=== PATIENT | female | born 1935 | race African-American/Black ===

== ENCOUNTER 2021-02-18 01:26 | Inpatient (IN) | payer OTHER ==
[2021-02-18] VITALS (9 sets, daily range): BP systolic 94–126; BP diastolic 61–73
[~2021-02-18] VITALS: Ht 154.9 cm; Wt 43.5 kg
[2021-02-18] MEDS ORDERED: MethylPREDNISolone SOD SUCC 125 MG/2 ML VIAL ONE (01:42)
[2021-02-18] MEDS ORDERED: IPRATROPIUM BROMIDE 0.5 MG/2.5 ML NEB SOLUTION NEB ONE (01:45)
[2021-02-18] MEDS ORDERED: ALBUTEROL SULFATE 5 MG/ML 20 ML NEB SOLN [BULK] NEB ONE (01:45)
[2021-02-18] MEDS ORDERED: MethylPREDNISolone SOD SUCC 125 MG/2 ML VIAL IVP ONE (01:45)
[2021-02-18] MEDS ORDERED: MAGNESIUM SULFATE 2 GM/WATER 50 ML IV ONE (01:45)
[2021-02-18] MEDS ORDERED: 0.9% SODIUM CHLORIDE 10 ML SYRINGE IVP PRN (01:45)
[2021-02-18 01:56] LABS: ABG A-A DIFF O2 339.1 mmHg (10-20.0); ABG BASE EXCESS -9.4 mmol/L (-2.0-3.0); ABG CARBOXYHEMOGLOBIN 0.3 % (0.0-1.5); ABG HCO3 17.6 mmol/L (22.0-26.0); ABG METHEMOGLOBIN 0.3 % (0.0-1.5); ABG OXYGEN CONTENT 19.2 mL/dL (15.0-23.0); ABG OXYGEN SATURATION 99.4 % (95.0-98.0); ABG OXYHEMOGLOBIN 98.8 % (94.0-100.0); ABG PCO2 38 mmHg (35-45); ABG PH 7.277 (7.35-7.450); ABG TOTAL HEMOGLOBIN 13.2 G/dL (12.0-18.0); O2 DEVICE,BLOOD GAS BIPAP (ROOM AIR); PO2, ARTERIAL BG 335.8 mmHg (71.0-79.0); SITE, BLOOD GAS RT RADIAL; SOURCE, BLOOD GAS ARTERIAL; TEMPERATURE, FAHRENHEIT, BG 98.6 FAHREN (96.0-98.6)
[2021-02-18] MEDS ORDERED: ASPI-1450 PO (01:56)
[2021-02-18] MEDS ORDERED: ALEN10TA33 PO (01:56)
[2021-02-18] MEDS ORDERED: AMLO-258 PO (01:56)
[2021-02-18] MEDS ORDERED: ATOR40TA28 PO (01:56)
[2021-02-18] MEDS ORDERED: MELO-107 PO (01:56)
[2021-02-18] MEDS ORDERED: 0.9% SODIUM CHLORIDE 15 ML NEB SOLUTION NEB ONE (01:59)
[2021-02-18 02:05] LABS: COVID AG,FIA SOURCE NASOPHARYNGEAL
[2021-02-18 02:07] LABS: BASOPHILS % (AUTO) 0.5 % (0.0-2.0); EOSINOPHILS % (AUTO) 0.5 % (1.0-6.0); HEMATOCRIT 40.1 % (36-46); HEMOGLOBIN 12.7 g/dL (12.0-16.0); LYMPHOCYTES # (AUTO) 5.2 K/uL (1.0-4.8); LYMPHOCYTES % (AUTO) 51.6 % (22.0-44.0); MEAN CORPUSCULAR HEMOGLOBIN 30.3 pg (26.0-34.0); MEAN CORPUSCULAR HGB CONC 31.6 G/dL (31.0-37.0); MEAN CORPUSCULAR VOLUME 96 fL (80-100); MONOCYTES # (AUTO) 0.5 K/uL (0.1-1.0); MONOCYTES % (AUTO) 4.6 % (2.0-9.0); NEUTROPHILS # (AUTO) 4.3 K/uL (1.8-7.7); NEUTROPHILS % (AUTO) 42.8 % (40.0-70.0); PLATELET COUNT (AUTO) 254 K/uL (150-450); RED BLOOD CELL COUNT(AUTO) 4.19 MIL/uL (4.00-5.20); RED CELL DISTRIBUTION WIDTH 14.6 % (11.5-14.5)
[2021-02-18] MEDS ORDERED: ONDANSETRON HCL 4 MG/2 ML VIAL IVP PRN ×2 (02:15→08:15)
[2021-02-18] MEDS ORDERED: ACETAMINOPHEN 325 MG TABLET PO PRN (02:15)
[2021-02-18] MEDS ORDERED: VANCOMYCIN HCL 1 GM/D5% WATER 200 ML IV ONE (02:15)
[2021-02-18] MEDS ORDERED: PIPERACILLIN/TAZO 3.375 GM/D5W 50 ML IV ONE (02:15)
[2021-02-18] MEDS ORDERED: SODIUM CHLORIDE 0.9% 500 ML IV ONE ×2 (02:15→12:45)
[2021-02-18 02:17] LABS: POTASSIUM 3.5 mmol/L (3.5-5.1)
[2021-02-18 02:23] LABS: ANION GAP 17 mmol/L (8-16); CALCIUM, TOTAL 8.5 mg/dL (8.8-10.5); CARBON DIOXIDE 23 mmol/L (22-29); CHLORIDE 109 mmol/L (98-107); CREATININE 1.12 mg/dL (0.60-1.30); GLOMERULAR FILTR. RATE CALC 56 mL/min (>60); GLUCOSE,RANDOM 184 mg/dL (70-110); SODIUM SERUM 149 mmol/L (136-145); UREA NITROGEN, BLOOD 16 mg/dL (7-18)
[2021-02-18 02:29] LABS: ALANINE AMINOTRANSFERASE 188 U/L (12-78); ALBUMIN 3.5 g/dL (3.4-5.0); ALKALINE PHOSPHATASE 169 U/L (46-116); ASPARTATE AMINOTRANSFERASE 214 U/L (15-37); BILIRUBIN,TOTAL 0.5 mg/dL (0.1-1.0); TOTAL PROTEIN, SERUM 6.6 g/dL (6.4-8.2)
[2021-02-18 02:34] LABS: D-DIMER 1.94 mg/L FEU (0.00-0.50); INR 1.1 (0.9-1.1); PROTHROMBIN TIME 11.2 SEC (9.4-11.6)
[2021-02-18 02:39] LABS: B-TYPE NATRIURETIC PEPTIDE 1200 pg/mL (0-100)
[2021-02-18 02:43] LABS: LACTIC ACID 6.7 mmol/L (0.4-2.0)
[2021-02-18] MEDS ORDERED: NITROGLYCERIN 50 MG/D5% WATER 250 ML IV PRN (03:00)
[2021-02-18] MEDS ORDERED: IOHEXOL 350 MG/ML 100 ML VIAL ONE (03:10)
[2021-02-18] MEDS ORDERED: SODIUM CHLORIDE 0.9% 100 ML ONE (03:11)
[2021-02-18 03:44] LABS: APPEARANCE,URINE CLOUDY (CLEAR); BILIRUBIN,URINE NEGATIVE (NEGATIVE); GLUCOSE, URINE (UA) 100 mg/dL (NEGATIVE); KETONES,URINE NEGATIVE (NEGATIVE); LEUKOCYTE ESTERASE ,URINE NEGATIVE (NEGATIVE); NITRATE,URINE NEGATIVE (NEGATIVE); OCCULT BLOOD,URINE SMALL (NEGATIVE); PH,URINE 7.5 (5.0-8.0); PROTEIN,URINE SEE CONFIRM (NEGATIVE)
[2021-02-18] MEDS ORDERED: HEPARIN SODIUM,PORCINE 5,000 UNITS/ML VIAL IVP PRN ×5 (03:45→21:45)
[2021-02-18] MEDS ORDERED: HEPARIN SODIUM,PORCINE 5,000 UNITS/ML VIAL IVP ONE ×2 (03:45→21:45)
[2021-02-18 03:49] LABS: SULFOSALICYLIC ACID,URINE 2+ (Negative)
[2021-02-18 03:50] LABS: BACTERIA,URINE Rare /HPF (None Seen); SQUAMOUS EPITHELIAL CELL,UR Rare /LPF (None Seen); WBC,URINE 0-2 /HPF (0-5)
[2021-02-18] MEDS ORDERED: FUROSEMIDE 40 MG/4 ML VIAL IVP ONE (04:00)
[2021-02-18] MEDS: HEPARIN SODIUM 25000 UNITS/D5W 250 ML IV PRN ×3 (05:03→22:39)
[2021-02-18 05:50] LABS: ABG A-A DIFF O2 93.7 mmHg (10-20.0); ABG BASE EXCESS -2.9 mmol/L (-2.0-3.0); ABG CARBOXYHEMOGLOBIN 0.3 % (0.0-1.5); ABG HCO3 22.9 mmol/L (22.0-26.0); ABG METHEMOGLOBIN 0.2 % (0.0-1.5); ABG OXYGEN CONTENT 18.2 mL/dL (15.0-23.0); ABG OXYGEN SATURATION 94.8 % (95.0-98.0); ABG OXYHEMOGLOBIN 94.3 % (94.0-100.0); ABG PCO2 31 mmHg (35-45); ABG PH 7.453 (7.35-7.450); ABG TOTAL HEMOGLOBIN 13.7 G/dL (12.0-18.0); PO2, ARTERIAL BG 69.6 mmHg (71.0-79.0); SITE, BLOOD GAS LFT RADIAL; SOURCE, BLOOD GAS ARTERIAL; TEMPERATURE, FAHRENHEIT, BG 98.6 FAHREN (96.0-98.6)
[2021-02-18 05:51] LABS: O2 DEVICE,BLOOD GAS CANNULA (ROOM AIR)
[2021-02-18] MEDS ORDERED: BISACODYL 10 MG RECTAL RECTAL SUPPOSITORY PR PRN (08:15)
[2021-02-18] MEDS ORDERED: ZOLPIDEM TARTRATE 5 MG TABLET PO PRN (08:15)
[2021-02-18] MEDS ORDERED: MORPHINE SULFATE 2 MG/ML SYRINGE IVP PRN (08:15)
[2021-02-18] MEDS ORDERED: HYDROCODONE/ACETAMINOPHEN 5-325 MG TABLET PO PRN (08:15)
[2021-02-18] MEDS ORDERED: MAGNESIUM HYDROXIDE SUSPENSION 30 ML UDCUP PO PRN (08:15)
[2021-02-18] MEDS ORDERED: SODIUM CHLORIDE 0.9% 250 ML IV ONE (08:33)
[2021-02-18] MEDS ORDERED: HEPARIN SODIUM 25000 UNITS/D5W 250 ML IV PRN (08:45)
[2021-02-18] MEDS: PANTOPRAZOLE SODIUM 40 MG DR TABLET PO SCH (09:50)
[2021-02-18] MEDS: DOCUSATE SODIUM 100 MG CAPSULE PO SCH ×2 (09:50→21:21)
[2021-02-18] MEDS: AmLODIPine BESYLATE 10 MG TABLET PO SCH (09:50)
[2021-02-18] MEDS: ASPIRIN 81 MG CHEWABLE TABLET PO SCH (09:51)
[2021-02-18 09:54] LABS: BASOPHILS % (AUTO) 0.1 % (0.0-2.0); EOSINOPHILS % (AUTO) 0.1 % (1.0-6.0); HEMATOCRIT 38.2 % (36-46); HEMOGLOBIN 12.5 g/dL (12.0-16.0); LYMPHOCYTES # (AUTO) 0.6 K/uL (1.0-4.8); LYMPHOCYTES % (AUTO) 4.4 % (22.0-44.0); MEAN CORPUSCULAR HGB CONC 32.7 G/dL (31.0-37.0); MEAN CORPUSCULAR VOLUME 92 fL (80-100); MONOCYTES # (AUTO) 0.1 K/uL (0.1-1.0); MONOCYTES % (AUTO) 1.1 % (2.0-9.0); NEUTROPHILS # (AUTO) 12.2 K/uL (1.8-7.7); PLATELET COUNT (AUTO) 281 K/uL (150-450); RED BLOOD CELL COUNT(AUTO) 4.17 MIL/uL (4.00-5.20); RED CELL DISTRIBUTION WIDTH 14.5 % (11.5-14.5)
[2021-02-18 09:56] LABS: NEUTROPHILS % (AUTO) 94.3 % (40.0-70.0)
[2021-02-18] MEDS: FUROSEMIDE 20 MG/2 ML VIAL IVP SCH ×2 (09:57→21:21)
[2021-02-18] MEDS ORDERED: IOHEXOL 300 MG/ML 150 ML VIAL ONE (10:58)
[2021-02-18] MEDS ORDERED: HEPARIN SODIUM 1000 UNITS/NS 1,000 ML ONE (10:58)
[2021-02-18] MEDS ORDERED: LIDOCAINE/PF 1% 30 ML VIAL ONE (10:58)
[2021-02-18] MEDS ORDERED: SODIUM BICARBONATE 50 MEQ/50 ML VIAL ONE (10:58)
[2021-02-18] MEDS ORDERED: IOHEXOL 300 MG/ML 100 ML VIAL ONE (11:02)
[2021-02-18] MEDS ORDERED: IOHEXOL 300 MG/ML 50 ML VIAL ONE (11:02)
[2021-02-18] MEDS ORDERED: IPRATROPIUM BROMIDE 0.5 MG/2.5 ML NEB SOLUTION NEB PRN (11:30)
[2021-02-18] MEDS ORDERED: MIDAZOLAM HCL 2 MG/2 ML VIAL ONE (12:10)
[2021-02-18] MEDS ORDERED: FentaNYL CITRATE PF 100 MCG/2 ML VIAL ONE (12:10)
[2021-02-18] MEDS ORDERED: IOHEXOL 300 MG/ML 50 ML VIAL IARTER ONE (12:45)
[2021-02-18] MEDS ORDERED: LIDOCAINE 1% 30 ML/SOD BICARB 8.4% 4 ML SQ ONE (12:45)
[2021-02-18] MEDS ORDERED: HEPARIN SODIUM 1000 UNITS/NS 1,000 ML IARTER ONE (12:45)
[2021-02-18] MEDS ORDERED: IOHEXOL 300 MG/ML 100 ML VIAL IARTER ONE (12:45)
[2021-02-18] MEDS ORDERED: HEPARIN SODIUM 1000 UNITS/NS 500 ML ONE (12:49)
[2021-02-18] MEDS: CefTRIAXone SODIUM 2 GM in DEXTROSE 5%-WATER 50 ML IV SCH (14:33)
[2021-02-18] MEDS: MethylPREDNISolone SOD SUCC 40 MG/ML VIAL IVP SCH ×2 (14:33→18:41)
[2021-02-18] MEDS: DOXYCYCLINE HYCLATE 100 MG in DEXTROSE 5%-WATER 100 ML IV SCH (14:34)
[2021-02-18] MEDS: ALBUTEROL SULFATE 2.5 MG/0.5 ML NEB SOLUTION NEB SCH (21:15)
[2021-02-18] MEDS: ATORVASTATIN CALCIUM 40 MG TABLET PO SCH (21:21)
[2021-02-18 21:42] LABS: CALCIUM, TOTAL 8.5 mg/dL (8.8-10.5); CREATININE 1.1 mg/dL (0.60-1.30); POTASSIUM 3.1 mmol/L (3.5-5.1)
[2021-02-18] MEDS ORDERED: POTASSIUM CHL 10 MEQ/WATER 50 ML IV PRN ×2 (22:00)
[2021-02-18] MEDS ORDERED: POTASSIUM CHLORIDE 20 MEQ ER TABLET PO PRN (22:00)
[2021-02-19] VITALS: BP 112/67
[2021-02-19] MEDS: MethylPREDNISolone SOD SUCC 40 MG/ML VIAL IVP SCH ×4 (00:55→17:54)
[2021-02-19] MEDS: DOXYCYCLINE HYCLATE 100 MG in DEXTROSE 5%-WATER 100 ML IV SCH ×2 (00:55→14:24)
[2021-02-19 04:00] VITALS: BP 119/68
[2021-02-19 06:06] LABS: ANION GAP 9 mmol/L (8-16); CALCIUM, TOTAL 9.4 mg/dL (8.8-10.5); CARBON DIOXIDE 26 mmol/L (22-29); CHLORIDE 105 mmol/L (98-107); CREATININE 0.82 mg/dL (0.60-1.30); GLOMERULAR FILTR. RATE CALC > 60 mL/min (>60); GLUCOSE,RANDOM 136 mg/dL (70-110); POTASSIUM 4.9 mmol/L (3.5-5.1); SODIUM SERUM 140 mmol/L (136-145); UREA NITROGEN, BLOOD 19 mg/dL (7-18)
[2021-02-19 07:13] LABS: BASOPHILS % (AUTO) 0.1 % (0.0-2.0); EOSINOPHILS % (AUTO) 0.2 % (1.0-6.0); HEMATOCRIT 40.1 % (36-46); LYMPHOCYTES # (AUTO) 0.6 K/uL (1.0-4.8); LYMPHOCYTES % (AUTO) 3.6 % (22.0-44.0); MEAN CORPUSCULAR HEMOGLOBIN 29.9 pg (26.0-34.0); MEAN CORPUSCULAR HGB CONC 32.4 G/dL (31.0-37.0); MEAN CORPUSCULAR VOLUME 92 fL (80-100); MONOCYTES # (AUTO) 0.2 K/uL (0.1-1.0); MONOCYTES % (AUTO) 1.5 % (2.0-9.0); NEUTROPHILS # (AUTO) 15.8 K/uL (1.8-7.7); PLATELET COUNT (AUTO) 272 K/uL (150-450); RED BLOOD CELL COUNT(AUTO) 4.35 MIL/uL (4.00-5.20); RED CELL DISTRIBUTION WIDTH 14.7 % (11.5-14.5)
[2021-02-19 07:14] LABS: NEUTROPHILS % (AUTO) 94.6 % (40.0-70.0)
[2021-02-19] MEDS ORDERED: 0.9% SODIUM CHLORIDE 5 ML NEB SOLUTION NEB ONE ×2 (07:28→14:09)
[2021-02-19] MEDS: ALBUTEROL SULFATE 2.5 MG/0.5 ML NEB SOLUTION NEB SCH ×2 (08:36→13:00)
[2021-02-19] MEDS: DOCUSATE SODIUM 100 MG CAPSULE PO SCH ×2 (09:00→21:15)
[2021-02-19] MEDS: PANTOPRAZOLE SODIUM 40 MG DR TABLET PO SCH (09:45)
[2021-02-19] MEDS: FUROSEMIDE 20 MG/2 ML VIAL IVP SCH ×2 (09:46→21:15)
[2021-02-19] MEDS: CLOPIDOGREL BISULFATE 75 MG TABLET PO SCH (09:51)
[2021-02-19] MEDS: AmLODIPine BESYLATE 10 MG TABLET PO SCH (09:51)
[2021-02-19] MEDS: ASPIRIN 81 MG CHEWABLE TABLET PO SCH (09:51)
[2021-02-19] MEDS: METOPROLOL SUCCINATE 25 MG ER TABLET PO SCH (09:51)
[2021-02-19] MEDS: CefTRIAXone SODIUM 2 GM in DEXTROSE 5%-WATER 50 ML IV SCH (12:44)
[2021-02-19] MEDS ORDERED: ALBUTEROL SULFATE 2.5 MG/0.5 ML NEB SOLUTION NEB PRN (15:45)
[2021-02-19] MEDS: ACETAMINOPHEN 325 MG TABLET PO PRN ×2 (15:59→22:04)
[2021-02-19] MEDS: HEPARIN SODIUM 25000 UNITS/D5W 250 ML IV PRN (16:23)
[2021-02-19 20:01] VITALS: BP 107/82
[2021-02-19] MEDS: ATORVASTATIN CALCIUM 40 MG TABLET PO SCH (21:15)
[2021-02-19 21:50] LABS: APPEARANCE,URINE CLOUDY (CLEAR); BILIRUBIN,URINE NEGATIVE (NEGATIVE); GLUCOSE, URINE (UA) NEGATIVE (NEGATIVE); KETONES,URINE NEGATIVE (NEGATIVE); LEUKOCYTE ESTERASE ,URINE TRACE (NEGATIVE); NITRATE,URINE NEGATIVE (NEGATIVE); OCCULT BLOOD,URINE LARGE (NEGATIVE); PH,URINE 5.5 (5.0-8.0); PROTEIN,URINE POS 1+ (NEGATIVE); UROBILINOGEN,URINE 0.2 mg/dL (<=1.0)
[2021-02-19] MEDS ORDERED: SODIUM CHLORIDE 0.9% 250 ML IV ONE (22:02)
[2021-02-19 22:04] LABS: RBC,URINE 26-50 /HPF (0-2)
[2021-02-19 22:05] LABS: BACTERIA,URINE Rare /HPF (None Seen); SQUAMOUS EPITHELIAL CELL,UR Rare /LPF (None Seen)
[2021-02-19] MEDS: ETHYL ALCOHOL 62% ANTISEPTIC NASAL INHALANT 0.6 ML AMPUL NASAL SCH (22:15)
[2021-02-20] MEDS: DOXYCYCLINE HYCLATE 100 MG in DEXTROSE 5%-WATER 100 ML IV SCH ×2 (00:01→14:53)
[2021-02-20 00:04] VITALS: BP 85/59
[2021-02-20 04:05] VITALS: BP 119/83
[2021-02-20] MEDS: MethylPREDNISolone SOD SUCC 40 MG/ML VIAL IVP SCH ×3 (05:52→12:11)
[2021-02-20 06:25] LABS: BASOPHILS % (AUTO) 0.2 % (0.0-2.0); EOSINOPHILS % (AUTO) 0 % (1.0-6.0); HEMATOCRIT 37.3 % (36-46); LYMPHOCYTES # (AUTO) 0.7 K/uL (1.0-4.8); LYMPHOCYTES % (AUTO) 3.7 % (22.0-44.0); MEAN CORPUSCULAR HEMOGLOBIN 30.1 pg (26.0-34.0); MEAN CORPUSCULAR HGB CONC 32.3 G/dL (31.0-37.0); MEAN CORPUSCULAR VOLUME 93 fL (80-100); MONOCYTES # (AUTO) 0.4 K/uL (0.1-1.0); MONOCYTES % (AUTO) 2.2 % (2.0-9.0); NEUTROPHILS # (AUTO) 18.1 K/uL (1.8-7.7); PLATELET COUNT (AUTO) 264 K/uL (150-450); RED CELL DISTRIBUTION WIDTH 14.7 % (11.5-14.5)
[2021-02-20 06:29] LABS: NEUTROPHILS % (AUTO) 93.9 % (40.0-70.0)
[2021-02-20 07:01] LABS: ANION GAP 10 mmol/L (8-16); CALCIUM, TOTAL 9.6 mg/dL (8.8-10.5); CARBON DIOXIDE 28 mmol/L (22-29); CHLORIDE 103 mmol/L (98-107); CREATININE 1.04 mg/dL (0.60-1.30); GLUCOSE,RANDOM 148 mg/dL (70-110); POTASSIUM 4.8 mmol/L (3.5-5.1); SODIUM SERUM 141 mmol/L (136-145); UREA NITROGEN, BLOOD 33 mg/dL (7-18)
[2021-02-20 07:05] LABS: GLOMERULAR FILTR. RATE CALC > 60 mL/min (>60)
[2021-02-20 08:00] VITALS: BP 121/74
[2021-02-20] MEDS: HEPARIN SODIUM,PORCINE 5,000 UNITS/ML VIAL IVP PRN ×2 (09:54→17:32)
[2021-02-20] MEDS: ETHYL ALCOHOL 62% ANTISEPTIC NASAL INHALANT 0.6 ML AMPUL NASAL SCH ×2 (09:55→19:38)
[2021-02-20] MEDS: ASPIRIN 81 MG CHEWABLE TABLET PO SCH (09:55)
[2021-02-20] MEDS: CLOPIDOGREL BISULFATE 75 MG TABLET PO SCH (09:55)
[2021-02-20] MEDS: DOCUSATE SODIUM 100 MG CAPSULE PO SCH ×2 (09:55→19:39)
[2021-02-20] MEDS: METOPROLOL SUCCINATE 25 MG ER TABLET PO SCH (09:55)
[2021-02-20] MEDS: AmLODIPine BESYLATE 10 MG TABLET PO SCH (09:55)
[2021-02-20] MEDS: FUROSEMIDE 20 MG/2 ML VIAL IVP SCH ×2 (09:55→19:38)
[2021-02-20] MEDS: PANTOPRAZOLE SODIUM 40 MG DR TABLET PO SCH (09:55)
[2021-02-20 12:00] VITALS: BP 114/79
[2021-02-20] MEDS: CefTRIAXone SODIUM 2 GM in DEXTROSE 5%-WATER 50 ML IV SCH (12:11)
[2021-02-20 16:00] VITALS: BP 110/75
[2021-02-20] MEDS: ATORVASTATIN CALCIUM 40 MG TABLET PO SCH (19:38)
[2021-02-20 20:00] VITALS: BP 117/75
[2021-02-21] MEDS ORDERED: MethylPREDNISolone SOD SUCC 40 MG/ML VIAL IVP SCH
[2021-02-21] MEDS ORDERED: PredniSONE 20 MG TABLET PO SCH (09:00)
== END 2021-02-20 20:15 | disposition short-term general hospital (02) | DRG 280 ==
LOC: EMS 01:28 → ICU 02:04
PROVIDERS: ADMIT Internal Medicine; ATTEND Internal Medicine
PROC: B2111ZZ Fluoroscopy of Multiple Coronary Arteries using Low Osmolar Contrast (ICD-10-PCS; principal; 2021-02-18)
PROC: B4101ZZ Fluoroscopy of Abdominal Aorta using Low Osmolar Contrast (ICD-10-PCS; 2021-02-18)
PROC: 5A09357 Assistance with Respiratory Ventilation, Less than 24 Consecutive Hours, Continuous Positive Airway Pressure (ICD-10-PCS; 2021-02-18)
DX: I21.4 Non-ST elevation (NSTEMI) myocardial infarction (principal); I50.41 Acute combined systolic (congestive) and diastolic (congestive) heart failure; J96.01 Acute respiratory failure with hypoxia; E43 Unspecified severe protein-calorie malnutrition; J44.1 Chronic obstructive pulmonary disease with (acute) exacerbation; E87.2 Acidosis; E87.1 Hypo-osmolality and hyponatremia; J98.11 Atelectasis; Z68.1 Body mass index [BMI] 19.9 or less, adult; R65.10 Systemic inflammatory response syndrome (SIRS) of non-infectious origin without acute organ dysfunction; I24.9 Acute ischemic heart disease, unspecified; Z20.822 Contact with and (suspected) exposure to COVID-19; E78.5 Hyperlipidemia, unspecified; I11.0 Hypertensive heart disease with heart failure; I25.10 Atherosclerotic heart disease of native coronary artery without angina pectoris; M19.90 Unspecified osteoarthritis, unspecified site; Z88.8 Allergy status to other drugs, medicaments and biological substances; Z87.891 Personal history of nicotine dependence; Z79.899 Other long term (current) drug therapy; Z79.02 Long term (current) use of antithrombotics/antiplatelets; Z79.82 Long term (current) use of aspirin
CPT/HCPCS: 36600; 71045; 71275; 80048; 80053; 81001; 81002; 82805; 83605; 83880; 84145; 84484; 85025; 85379; 85610; 85730; 87040; 87081; 93005; 93306; 94640; 94644; 94660; 99291; A9575; G0378; J0696; J1644; J1940; J2250; J2405; J2543; J2920; J2930; J3010; J3370; J3475; J3490; J7030; J7050; J7060; Q9967; 36415-L1; 36415-TC; J7611; J7613; U0003